=== PATIENT | female | born 2000 | race African-American/Black ===

== ENCOUNTER → 2021-05-25 | Outpatient (CLI) | payer OTHER ==
--- NOTE | 2021-05-25 13:02 | RAD ---
EXAM: Pelvic sonogram. HISTORY: Abnormal uterine bleeding. TECHNIQUE: Transabdominal and transvaginal sonographic imaging of the abdomen was performed. COMPARISON: None. FINDINGS: The uterus measures 7.1 x 4.1 x 3.1 cm. The endometrial stripe measures 2.5 mm. The ovaries are normal in size and demonstrate normal blood flow. There is no pelvic free fluid. The bladder is unremarkable. IMPRESSION: Unremarkable pelvic sonogram. Electronically signed by: Radha Reynolds MD (05/25/2021 1:00 PM) [id number]
== END ==
LOC: US 11:01
PROVIDERS: ATTEND Obstetrics & Gynecology
DX: N93.9 Abnormal uterine and vaginal bleeding, unspecified (principal); D50.9 Iron deficiency anemia, unspecified
CPT/HCPCS: 76830; 76856